=== PATIENT | female | born 1960 | race Caucasian/White ===

== ENCOUNTER 2021-06-10 21:37 | Inpatient (IN) ==
[2021-06-10] MEDS ORDERED: *HR* OxyCODONE/APAP 5/325 TABLET PO ONE (22:52)
[2021-06-10] MEDS ORDERED: Ketorolac 30 MG/ML VIAL IM ONE (22:53)
[2021-06-11] MEDS ORDERED: Naloxone 0.4 MG/ML INJ IVP PRN (01:54)
[2021-06-11] MEDS ORDERED: 0.9 % Sodium Chloride 1,000 ML IVC SCH (02:00)
[2021-06-11 02:14] LABS: Basophils # 0.1 K/mcL (0.0-0.2); Basophils % 0.4 %; Eosinophils % 0.3 %; Hematocrit 39.6 % (35.3-44.9); Hemoglobin 12.5 g/dL (11.5-15.4); Immature Granulocytes % 0.3 % (0-4); Lymphocytes # 1.5 K/mcL (0.6-4.6); Lymphocytes % 13.4 %; Mean Corpuscular HGB Conc 31.6 g/dL (31.6-35.5); Mean Corpuscular Volume 76.2 fL (83.0-100.0); Mean Platelet Volume 10.1 fL (9.4-12.4); Monocytes # 1.2 K/mcL (0.0-1.3); Monocytes % 10.7 %; Neutrophils # 8.4 K/mcL (1.6-8.9); Platelet Count 173 K/mcL (140-400); Red Cell Distribution Width 17.7 % (11.5-14.5); Segmented Neutrophils % 74.9 %; White Blood Count 11.2 K/mcL (4.3-11.1)
[2021-06-11 02:21] LABS: Prothrombin Time 11.4 Seconds (9.4-12.1)
[2021-06-11 02:36] LABS: BUN/Creatinine Ratio 15 (6-26); Blood Urea Nitrogen 6 mg/dL (6-20); Calcium 9.4 mg/dL (8.6-10.3); Carbon Dioxide 23 mEq/L (23-29); Chloride 95 mEq/L (98-107); Glucose 111 mg/dL (70-105); Osmolality,Calculated 262 (280-300); Potassium 3.7 mEq/L (3.5-5.1); Sodium 127 mEq/L (136-145); eGFR For African Americans > 60 (> 60); eGFR For Non-African Americans > 60 (> 60)
[2021-06-11 07:13] LABS: BUN/Creatinine Ratio 16 (6-26); Blood Urea Nitrogen 7 mg/dL (6-20); Calcium 9.3 mg/dL (8.6-10.3); Carbon Dioxide 24 mEq/L (23-29); Chloride 97 mEq/L (98-107); Glucose 96 mg/dL (70-105); Osmolality,Calculated 266 (280-300); Potassium 3.7 mEq/L (3.5-5.1); Sodium 129 mEq/L (136-145); eGFR For African Americans > 60 (> 60); eGFR For Non-African Americans > 60 (> 60)
[2021-06-11] MEDS: Nicotine 21 MG PATCH.TD24 TD SCH (09:40)
[2021-06-11] MEDS: Tiotropium 10 INH DOSE IH SCH (11:31)
[2021-06-11] MEDS: Budesonide/Formoterol 160/4.5 1 PUFF INH IH SCH (19:54)
[2021-06-11] MEDS: Ondansetron 4 MG/2 ML VIAL IVP PRN (20:38)
[2021-06-12 06:59] LABS: BUN/Creatinine Ratio 26 (6-26); Blood Urea Nitrogen 9 mg/dL (6-20); Calcium 9.1 mg/dL (8.6-10.3); Carbon Dioxide 22 mEq/L (23-29); Chloride 98 mEq/L (98-107); Glucose 74 mg/dL (70-105); Osmolality,Calculated 267 (280-300); Potassium 3.6 mEq/L (3.5-5.1); Sodium 130 mEq/L (136-145); eGFR For African Americans > 60 (> 60); eGFR For Non-African Americans > 60 (> 60)
[2021-06-12] MEDS: Budesonide/Formoterol 160/4.5 1 PUFF INH IH SCH ×2 (08:14→23:58)
[2021-06-12] MEDS: Tiotropium 10 INH DOSE IH SCH (08:15)
[2021-06-12] MEDS: Metoprolol XL (24 HR) Succ 25 MG TAB.ER.24H PO SCH (08:31)
[2021-06-12] MEDS: Nicotine 21 MG PATCH.TD24 TD SCH (08:31)
[2021-06-12] MEDS ORDERED: Povidone-Iodine 45 ML, Sodium Chloride IRRigation 1,000 ML IR ONE (10:00)
[2021-06-12] MEDS ORDERED: TOTAL JOINT MIXTURE (100ML) INTRAART ONE (10:00)
[2021-06-12] MEDS ORDERED: *HR* Propofol 200 MG/20 ML VIAL IVP ONE (11:06)
[2021-06-12] MEDS ORDERED: *HR* Midazolam HCl 2 MG/2 ML VIAL ONE (11:06)
[2021-06-12] MEDS ORDERED: *HR* FentaNYL (PF) 100 MCG/2 ML VIAL ONE ×2 (11:06→16:46)
[2021-06-12] MEDS ORDERED: Ondansetron 4 MG/2 ML VIAL ONE (11:07)
[2021-06-12] MEDS ORDERED: Lidocaine -MPF 2% 2 ML VIAL ONE (11:07)
[2021-06-12] MEDS: Ringers Solution, Lactated 1,000 ML IVC SCH (12:06)
[2021-06-12] MEDS ORDERED: Tranexamic Acid 1,000 MG/10 ML VIAL ONE (14:32)
[2021-06-12] MEDS ORDERED: *HR* FentaNYL (PF) 100 MCG/2 ML VIAL IVP PRN (14:46)
[2021-06-12] MEDS ORDERED: Albuterol 2.5 MG/3 ML NEBULIZER IH PRN (14:46)
[2021-06-12] MEDS ORDERED: Acetaminophen IV 1,000 MG/100 ML BAG IVPB ONE (15:31)
[2021-06-12] MEDS: Acetaminophen 325 MG TABLET PO PRN (18:05)
[2021-06-12] MEDS: CeFAZolin 2 GM/100 ML BAG IVPB SCH (23:22)
[2021-06-13] MEDS: Nicotine 21 MG PATCH.TD24 TD SCH (07:47)
[2021-06-13] MEDS: Metoprolol XL (24 HR) Succ 25 MG TAB.ER.24H PO SCH (07:48)
[2021-06-13] MEDS: CeFAZolin 2 GM/100 ML BAG IVPB SCH ×3 (07:54→23:50)
[2021-06-13] MEDS ORDERED: *HR* Enoxaparin 30 MG/0.3 ML SYRINGE SQ SCH (09:00)
[2021-06-13] MEDS: Budesonide/Formoterol 160/4.5 1 PUFF INH IH SCH ×2 (10:33→21:06)
[2021-06-13] MEDS: Tiotropium 10 INH DOSE IH SCH (10:38)
[2021-06-13] MEDS: Acetaminophen 325 MG TABLET PO PRN (13:40)
[2021-06-13] MEDS: Ringers Solution, Lactated 1,000 ML IVC SCH (16:46)
[2021-06-13] MEDS: Ondansetron 4 MG/2 ML VIAL IVP PRN (16:53)
[2021-06-13] MEDS ORDERED: *HR* OxyCODONE Immed Rel 5 MG TABLET PO PRN ×3 (17:31→17:34)
[2021-06-13] MEDS: *HR* OxyCODONE Immed Rel 5 MG TABLET PO PRN ×2 (17:40→21:40)
[2021-06-13] MEDS: Cyanocobalamin (B-12) 1,000 MCG TABLET PO SCH (19:53)
[2021-06-14] MEDS: *HR* OxyCODONE Immed Rel 5 MG TABLET PO PRN ×4 (02:34→16:46)
[2021-06-14 05:14] LABS: Basophils % 0.3 %; Eosinophils # 0.2 K/mcL (0.0-0.6); Eosinophils % 2.2 %; Hematocrit 31.9 % (35.3-44.9); Immature Granulocytes % 0.3 % (0-4); Lymphocytes # 2.1 K/mcL (0.6-4.6); Lymphocytes % 19.6 %; Mean Corpuscular Hemoglobin 24.6 pg (28.0-33.3); Mean Corpuscular Volume 79.2 fL (83.0-100.0); Mean Platelet Volume 11.1 fL (9.4-12.4); Monocytes # 1.2 K/mcL (0.0-1.3); Monocytes % 11.5 %; Neutrophils # 6.9 K/mcL (1.6-8.9); Platelet Count 122 K/mcL (140-400); Red Blood Count 4.03 M/mcL (3.82-4.97); Red Cell Distribution Width 18.6 % (11.5-14.5); Segmented Neutrophils % 66.1 %; White Blood Count 10.5 K/mcL (4.3-11.1)
[2021-06-14 05:18] LABS: Hemoglobin 9.9 g/dL (11.5-15.4)
[2021-06-14 05:27] LABS: BUN/Creatinine Ratio 18 (6-26); Blood Urea Nitrogen 6 mg/dL (6-20); Calcium 8.9 mg/dL (8.6-10.3); Carbon Dioxide 27 mEq/L (23-29); Chloride 100 mEq/L (98-107); Glucose 112 mg/dL (70-105); Osmolality,Calculated 274 (280-300); Potassium 3.6 mEq/L (3.5-5.1); Sodium 133 mEq/L (136-145); eGFR For African Americans > 60 (> 60); eGFR For Non-African Americans > 60 (> 60)
[2021-06-14] MEDS: Nicotine 21 MG PATCH.TD24 TD SCH (08:18)
[2021-06-14] MEDS: Metoprolol XL (24 HR) Succ 25 MG TAB.ER.24H PO SCH (08:18)
[2021-06-14] MEDS: Cyanocobalamin (B-12) 1,000 MCG TABLET PO SCH (08:18)
[2021-06-14] MEDS: CeFAZolin 2 GM/100 ML BAG IVPB SCH ×2 (08:23→16:46)
[2021-06-14] MEDS ORDERED: Loratadine 10 MG TABLET PO SCH (09:00)
[2021-06-14] MEDS ORDERED: Aspirin Enteric Coated 81 MG Tablet PO SCH (09:00)
[2021-06-14] MEDS ORDERED: NON-FORMULARY MEDICATION 1 EACH EACH (Fluticasone/Umeclidin/Vilanter [Trelegy Ellipta 100- IH SCH (09:00)
[2021-06-14] MEDS ORDERED: *HR* Enoxaparin 30 MG/0.3 ML SYRINGE SQ SCH (09:00)
[2021-06-14] MEDS: Budesonide/Formoterol 160/4.5 1 PUFF INH IH SCH (10:42)
[2021-06-14] MEDS: Tiotropium 10 INH DOSE IH SCH (10:42)
[2021-06-14 14:12] LABS: Hematocrit 34.7 % (35.3-44.9); Hemoglobin 10.8 g/dL (11.5-15.4)
[2021-06-14 14:41] VITALS: BP 113/68; PULSE 110; TEMP 97.9; O2SAT 90
[2021-06-14] MEDS: Ringers Solution, Lactated 1,000 ML IVC SCH (17:35)
== END 2021-06-14 20:00 | disposition home health service (06) | DRG 481 ==
LOC: EMEROOARM 21:37 → 3ANU 21:37 → SUATTDRO 06-11 01:33 → 3ANU 06-11 02:08 → 4WAOSI 06-12 14:10
PROVIDERS: ADMIT Student in an Organized Health Care Education/Training Program; ATTEND Student in an Organized Health Care Education/Training Program